=== PATIENT | female | born 1965 | race American Indian/Alaskan Native ===

== ENCOUNTER 2017-08-11 06:46 | Emergency (ER) | payer BC, MEDICAID ==
[2017-08-11 06:47] VITALS: BMI 23.7
[2017-08-11 07:16] VITALS: RESP 18; TEMP 98
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
[2017-08-11 10:56] VITALS: BP 118/72; PULSE 77
[2017-08-11 16:26] VITALS: O2SAT 98
== END 2017-08-11 10:20 | disposition home or self-care (01) ==
LOC: SUPCPDRO 06:46 → C.ER 06:46
DX: M54.9 Dorsalgia, unspecified (principal); F10.10 Alcohol abuse, uncomplicated; Y90.5 Blood alcohol level of 100-119 mg/100 ml

== ENCOUNTER 2018-02-25 10:57 | Emergency (ER) | payer BC, MEDICAID ==
[2018-02-25 10:58] VITALS: BMI 23.7
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
[2018-02-25 13:53] VITALS: BP 116/80; PULSE 63; RESP 20; TEMP 98.9
[2018-02-25 13:56] VITALS: O2SAT 97
== END 2018-02-25 14:38 | disposition home or self-care (01) ==
LOC: C.ER 10:57
DX: S05.92XA Unspecified injury of left eye and orbit, initial encounter (principal); Y08.89XA Assault by other specified means, initial encounter; Y92.89 Other specified places as the place of occurrence of the external cause; Y99.8 Other external cause status

== ENCOUNTER 2018-03-28 19:01 | Emergency (ER) | payer BC, MEDICAID ==
--- NOTE | 2018-03-28 19:37 | C.PDOC ---
History Of Present Illness 52 y/o female presents to the ER requesting detox from ETOH. Patient states that she has daily heavy beer consumption. 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 She is currently not taking any anti-seizure medications. Chief Complaint (Nursing): Substance Abuse History Per: Patient History/Exam Limitations: no limitations Past Medical History Reviewed: Historical Data, Nursing Documentation, Vital Signs Vital Signs: Last Vital Signs Temp 98 F 03/29/18 03:53 Pulse 75 03/29/18 03:53 Resp 18 03/29/18 03:53 BP 116/76 03/29/18 03:53 Pulse Ox 98 03/29/18 03:53 - Medical History PMH: Anxiety, Arthritis, Back Problems, Bipolar Disorder, Depression Denies: Chronic Kidney Disease Surgical History: Tonsillectomy - [facility] Procedures ANESTH INJECT-SPIN CANAL (05/01/15) CERVICAL SPINE X-RAY NEC (04/09/14) INJECT STEROID (05/01/15) INJECT/INFUSE NEC (05/01/15) LUMBOSAC SPINE X-RAY NEC (05/01/15) SPINAL CANAL INJECT NEC (05/01/15) THORACIC SPINE X-RAY NEC (08/01/14) Family History: States: Diabetes, Hypertension - Social History Hx Tobacco Use: No Hx Alcohol Use: Yes Hx Substance Use: No - Immunization History Hx Tetanus Toxoid Vaccination: No Hx Influenza Vaccination: No Hx Pneumococcal Vaccination: No Review Of Systems Except As Marked, All Systems Reviewed And Found Negative. Constitutional: Negative for: Fever, Chills Physical Exam - Physical Exam Appears: No Acute Distress, Other (somulent but arousable to tactile stimuli) Skin: Normal Color, Warm, Dry Head: Atraumatic, Normacephalic Eye(s): bilateral: Normal Inspection, PERRL, EOMI Nose: Normal Oral Mucosa: Moist, Other (ETOH on breath) Neck: Supple, Other ((-)JVD, (-) cervical spine tenderness) Chest: Symmetrical Cardiovascular: Rhythm Regular Respiratory: Normal Breath Sounds, No Rales, No Rhonchi, No Wheezing Gastrointestinal/Abdominal: Soft, No Tenderness Extremity: Other (peripheral pulses ( +2)) Neurological/Psych: Oriented x3, Normal Speech ED Course And Treatment - Laboratory Results Result Diagrams: 03/28/18 20:15 03/28/18 20:15 O2 Sat by Pulse Oximetry: 100 Medical Decision Making Medical Decision Making: Plan: --Crisis Disposition - Disposition Referrals: Alcoholics Anonymous [Outside] [facility] [Outside] Disposition: HOME/ ROUTINE Disposition Time: 08:53 Condition: FAIR Instructions: Alcohol Use - When Is Drinking a Problem? Forms: [facility] (Japanese) Print Language: SERBIAN - Clinical Impression Clinical Impression: Alcohol abuse - Scribe Statement The provider has reviewed the documentation as recorded by the Truibe Steve Chavira Provider Attestation: All medical record entries made by the Scribe were at my direction and personally dictated by me. I have reviewed the chart and agree that the record accurately reflects my personal performance of the history, physical exam, medical decision making, and the department course for this patient. I have also personally directed, reviewed, and agree with the discharge instructions and disposition.
[2018-03-28 19:50] VITALS: BMI 24.5
[2018-03-28 20:23] LABS: BASO % 0.4 % (0.0-2.0); EOS % 1.2 % (0.0-4.0); LYMPH # 1.5 K/uL (1.0-4.3); LYMPH % 36.4 % (20.0-40.0); MEAN CELL VOLUME 98.3 fL (81.0-99.0); MEAN CORPUSCULAR HGB CONC 34.6 g/dL (33.0-37.0); MEAN PLATELET VOLUME 8.7 fL (7.2-11.7); MONO # 0.2 K/uL (0.0-0.8); MONO % 5.3 % (0.0-10.0); NEUT # 2.3 K/uL (1.8-7.0); NEUT % 56.7 % (50.0-75.0); RBC 3.84 Mil/uL (3.80-5.20); RED CELL DISTRIBUTION WIDTH 13.6 % (11.5-14.5)
[2018-03-28 20:24] LABS: SQUAMOUS EPITHIAL < 1 /hpf (0-5); URINE BACTERIA RARE (<OCC); URINE BILIRUBIN NEGATIVE (NEGATIVE); URINE BLOOD 1+ (NEGATIVE); URINE CLARITY Hazy (Clear); URINE COLOR Red (YELLOW); URINE GLUCOSE (UA) NORMAL (Normal); URINE LEUKOCYTE ESTERASE 3+ Leu/uL (Negative); URINE PROTEIN NEGATIVE (NEGATIVE); URINE UROBILINOGEN NORMAL mg/dL (0.2-1.0); WBC CLUMPS FEW /hpf
[2018-03-28 20:33] LABS: ALB/GLOB RATIO 1.2 (1.0-2.1); ALBUMIN 4.5 g/dL (3.5-5.0); ALT/SGPT 38 U/L (9-52); AST/SGOT 31 U/L (14-36); BLOOD UREA NITROGEN 10 mg/dL (7-17); CALCIUM 9.4 mg/dl (8.6-10.4); GFR AFRICAN-AMERICAN > 60; GFR NON-AFRICAN AMERICAN 59
[2018-03-28 20:39] LABS: BARBITURATES, UR NEGATIVE (NEGATIVE); BENZODIAZEPINES, UR NEGATIVE (NEGATIVE); OPIATES, UR NEGATIVE (NEGATIVE); PHENCYCLIDINE, UR NEGATIVE (NEGATIVE)
[2018-03-29 00:46] VITALS: RESP 18
[2018-03-29] MEDS ORDERED: Alum-Mag Hydrox-Simethicone Susp (30 mL) ONE (00:54)
[2018-03-29] MEDS ORDERED: Aluminum Hydroxide/Magnesium Hydroxide Susp (30 mL) PO STA (01:19)
[2018-03-29 03:53] VITALS: BP 116/76; PULSE 75; TEMP 98
[2018-03-29 08:54] VITALS: O2SAT 100
== END 2018-03-29 04:59 | disposition home or self-care (01) ==
LOC: C.ER 19:01
DX: F10.10 Alcohol abuse, uncomplicated (principal); Y90.6 Blood alcohol level of 120-199 mg/100 ml; F31.9 Bipolar disorder, unspecified; F41.9 Anxiety disorder, unspecified